=== PATIENT | female | born 1965 | race Caucasian/White ===

== ENCOUNTER 2021-06-10 07:56 | Emergency (ER) | payer OTHER ==
[2021-06-10 08:11] VITALS: BP 140/92; PULSE 77
--- NOTE | 2021-06-10 09:33 | EDM.PDOC ---
ED HPI GENERAL MEDICAL PROBLEM - General Chief Complaint: Laceration Stated Complaint: fall, head laceration Time Seen by Provider: 06/10/21 08:26 Source of Information: Reports: Patient History Limitations: Reports: No Limitations - History of Present Illness INITIAL COMMENTS - FREE TEXT/NARRATIVE: Patient was pushing a garbage can when wind suddenly blew open the attached lid. Lid flew back towards patient's face. Patient dropped the can to get away from the lid. Tripped on the open lid as can hit ground. Fell forward and bashed the top lip of the can with top of her head, forcing head and neck to arch backwards. No LOC. Has head laceration and neck pain. Denies other injuries. No vision changes. No injuries to the face. Denies Resp/CV/Neuro/GI//Limb changes. Neck Pain Score (Numeric/FACES): 8 - Related Data Allergies Allergy/AdvReac Type Severity Reaction Status Date / Time No Known Allergies Allergy Verified 07/30/15 11:17 Home Meds: Home Meds Acitretin [Soriatane] 25 mg PO TID PRN 07/30/15 [History] Acyclovir [Zovirax] 400 mg PO BID 07/30/15 [History] Clindamycin Phosphate [Cleocin T 1% Gel] 1 gm TOP TID 07/30/15 [History] Tretinoin/Emollient Base [Tretinoin 0.05% Emollient Crm] 1 gm TP DAILY 07/30/15 [History] Triamcinolone Acetonide [Triamcinolone Acetonide 0.1% Crm] 15 gm TOP BID 07/30/15 [History] hydroCHLOROthiazide [Hydrochlorothiazide] 12.5 mg PO DAILY 07/30/15 [History] Cyclobenzaprine [Flexeril] 10 mg PO TID PRN #15 tab 06/10/21 [Rx] 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 ED EXAM, SKIN/RASH Exam: See Below Exam Limited By: No Limitations General Appearance: Alert, Mild Distress Eye Exam: Bilateral Eye: EOMI, PERRL Nose: Normal Inspection Throat/Mouth: Normal Inspection, Normal Voice, No Airway Compromise Head: Other (laceration/linear starting at hairline top of forehead and extending towards back of head). No: Facial Swelling, Facial Tenderness Neck: Supple, Other (diffuse tenderness along cervical spine and soft tissue bilaterally) Respiratory/Chest: No Respiratory Distress, Lungs Clear Cardiovascular: Regular Rate, Rhythm Back Exam: Other (mild discomfort with palpation above both shoulder blades). No: CVA Tenderness (L), CVA Tenderness (R), Vertebral Tenderness Extremities: Normal Inspection, Normal Range of Motion, Non-Tender, Normal Capillary Refill Neurological: Alert, Oriented, CN II-XII Intact, Normal Cognition, Normal Gait, No Motor/Sensory Deficits Psychiatric: Normal Affect, Normal Mood Skin: Warm, Dry, Wound/Incision Location, Skin: Head ED SKIN PROCEDURES - Laceration/Wound Repair Midline Dorsal Head Appearance: Subcutaneous, Linear, Clean Skin Prep: Saline Exploration/Debridement/Repair: Wound Explored, Explored to Base, No Foreign Material Found Closed with: Dermabond Lac/Wound length In cm: 4 Sterile Dressing Applied: None Tetanus Status Addressed: Yes Complications: No Course - Vital Signs Last Recorded V/S: Last Vital Signs Temp 37.0 C 06/10/21 07:57 Pulse 77 06/10/21 07:57 Resp 20 06/10/21 07:57 BP 140/92 H 06/10/21 07:57 Pulse Ox 100 06/10/21 07:57 - Orders/Labs/Meds Orders: Active Orders 24 hr Category Date Time Status Cervical Spine Comp wo Cont [MR] Stat Exams 06/10/21 08:17 Stop Req Cervical Spine wo Cont [CT] Stat Exams 06/10/21 08:30 Taken Head wo Cont [CT] Stat Exams 06/10/21 08:17 Taken - Re-Assessments/Exams Free Text/Narrative Re-Assessment/Exam: 06/10/21 09:45 Laceration repaired. Recommended zakia or sutures but patient wanted tissue glue. Wound was glued with good overall result. Patient is due for a tetanus shot but did not want us to update it today while she was in the ER (refused). Wound care reviewed. She was made aware that the glue might be stuck in her hair for awhile and be difficult to remove after wound heals. To avoid showering for 5 days and keep the area dry. Departure - Departure Time of Disposition: 09:19 Disposition: Home, Self-Care 01 Condition: Good Clinical Impression: Laceration of head Qualifiers: Encounter type: initial encounter Location of open wound of head: scalp Foreign body presence: without foreign body Qualified Code(s): S01.01XA - Laceration without foreign body of scalp, initial encounter Whiplash injury, acute Qualifiers: Encounter type: initial encounter Qualified Code(s): S13.4XXA - Sprain of ligaments of cervical spine, initial encounter - Discharge Information *PRESCRIPTION DRUG MONITORING PROGRAM REVIEWED*: Not Applicable *COPY OF PRESCRIPTION DRUG MONITORING REPORT IN PATIENT SURESH: Not Applicable Prescriptions: Cyclobenzaprine [Flexeril] 10 mg PO TID PRN #15 tab PRN Reason: Spasms Instructions: Tissue Adhesive Wound Care, Cervical Sprain Referrals: PCP,Unknown [Primary Care Provider] - Forms: ED Department Discharge Care Plan Goals: Wound care as we reviewed. Follow up as needed if any worse/problems develop such as signs of infection. Sepsis Event Note (ED) - Evaluation Sepsis Screening Result: No Definite Risk - Focused Exam Vital Signs: Vital Signs Temp Pulse Resp BP Pulse Ox 06/10/21 07:57 37.0 C 77 20 140/92 H 100 - My Orders Last 24 Hours: My Active Orders 06/10/21 08:17 Cervical Spine Comp wo Cont [MR] Stat Head wo Cont [CT] Stat 06/10/21 08:30 Cervical Spine wo Cont [CT] Stat - Assessment/Plan Last 24 Hours: My Active Orders 06/10/21 08:17 Cervical Spine Comp wo Cont [MR] Stat Head wo Cont [CT] Stat 06/10/21 08:30 Cervical Spine wo Cont [CT] Stat
== END 2021-06-10 09:47 | disposition home or self-care (01) ==
LOC: LL.ED 07:56
DX: S01.01XA Laceration without foreign body of scalp, initial encounter (principal); S13.4XXA Sprain of ligaments of cervical spine, initial encounter; W18.09XA Striking against other object with subsequent fall, initial encounter
CPT/HCPCS: 12002; 70450; 72125; 99283-25

== ENCOUNTER 2022-02-03 15:42 | Emergency (ER) | payer OTHER ==
[2022-02-03] MEDS ORDERED: Sodium Chloride 0.9% 10 ML Syringe FLUSH PRN (15:50)
[2022-02-03] MEDS ORDERED: Aspirin 81 MG Tab.Chew PO ONE (15:50)
[2022-02-03] MEDS ORDERED: GI Cocktail Oral Solution 30 ML PO ONE (15:51)
[2022-02-03] MEDS ORDERED: Lactated Ringers 1,000 ML IV SCH (16:00)
[2022-02-03 16:24] LABS: ANION GAP 13.3 meq/L (7-15); CHLORIDE,CL 101 mmol/L (98-107); SODIUM,NA 141 mmol/L (136-145)
[2022-02-03 16:25] LABS: ESTIMATED GFR 70 mL/min (>=60)
[2022-02-03] MEDS ORDERED: Ondansetron 4 MG/2 ML SDV IVPUSH ONE (16:33)
[2022-02-03 19:25] VITALS: BP 148/62; PULSE 72
== END 2022-02-03 19:48 | disposition home or self-care (01) ==
LOC: LL.ED 15:42
DX: R07.89 Other chest pain (principal)
CPT/HCPCS: 36415; 80053; 83735; 84484; 85025; 93005; 96361; 96374; 99284-25; A9270-GY; J2405; J3490; J7120

== ENCOUNTER 2022-10-11 07:23 | Observation (INO) | payer OTHER ==
[2022-10-11] MEDS ORDERED: Ketorolac 30 MG/ML SDV IVPUSH ONE (07:36)
[2022-10-11] MEDS ORDERED: Ondansetron 4 MG/2 ML SDV IVPUSH ONE (07:37)
[2022-10-11] MEDS ORDERED: Sodium Chloride 0.9% 1,000 ML IV ONE (07:52)
[2022-10-11] MEDS: Sodium Chloride 0.9% 10 ML Syringe FLUSH PRN ×2 (07:56→18:49)
[2022-10-11] MEDS ORDERED: fentaNYL 50 MCG/ML SDV IVPUSH ONE (08:03)
[2022-10-11] MEDS ORDERED: fentaNYL 50 MCG/ML SDV ONE (08:04)
[2022-10-11] MEDS ORDERED: HYDROmorphone 1 MG/ML Syringe IVPUSH ONE ×2 (08:22→09:26)
[2022-10-11] MEDS ORDERED: HYDROmorphone 1 MG/ML Syringe ONE (08:24)
[2022-10-11 08:26] LABS: ANION GAP 11.5 meq/L (7-15)
[2022-10-11] MEDS: Sodium Chloride 0.9% 1,000 ML IV SCH ×2 (09:50→18:44)
[2022-10-11] MEDS: cefTRIAXone 1 GM in Sodium Chloride 0.9% 100 ML IV SCH (09:50)
[2022-10-11] MEDS: HYDROmorphone 0.5 MG/0.5 ML Syringe IVPUSH PRN (18:49)
[2022-10-12] MEDS: HYDROmorphone 0.5 MG/0.5 ML Syringe IVPUSH PRN (02:42)
[2022-10-12] MEDS: Sodium Chloride 0.9% 1,000 ML IV SCH (02:42)
[2022-10-12] MEDS: Sodium Chloride 0.9% 10 ML Syringe FLUSH PRN ×3 (02:43→10:14)
[2022-10-12 09:21] VITALS: BP 130/69; PULSE 72
[2022-10-12] MEDS ORDERED: fentaNYL 50 MCG/ML SDV IVPUSH ONE (09:23)
[2022-10-12] MEDS: cefTRIAXone 1 GM in Sodium Chloride 0.9% 100 ML IV SCH (09:25)
== END 2022-10-12 12:10 | disposition home or self-care (01) ==
LOC: LL.ED 07:23 → LL.MS 09:41
PROVIDERS: ADMIT Emergency Medicine; ATTEND Emergency Medicine
DX: N30.00 Acute cystitis without hematuria (principal); E78.00 Pure hypercholesterolemia, unspecified; F41.9 Anxiety disorder, unspecified; F03.90 Unspecified dementia, unspecified severity, without behavioral disturbance, psychotic disturbance, mood disturbance, and anxiety; M47.816 Spondylosis without myelopathy or radiculopathy, lumbar region; M16.0 Bilateral primary osteoarthritis of hip; Z79.899 Other long term (current) drug therapy; Z98.890 Other specified postprocedural states
CPT/HCPCS: 36415; 74176; 80053; 81001; 83605; 85025; 94761; 96361; 96365; 96375; 96376; 99223; 99238; 99285-25; G0378; J0696; J1170; J1885; J2405; J3010; J3490; J7030